=== PATIENT | female | born 1975 | race Asian ===

== ENCOUNTER 2022-01-21 01:15 | Emergency (ER) | payer BC ==
[~2022-01-21] VITALS: Ht 162.6 cm; Wt 74.8 kg
[2022-01-21 01:20] VITALS: BP_SYST 103
--- NOTE | 2022-01-21 01:21 | NUR ---
Patient to ER bed 07 to gown for evaluation. Side rails up. Report given to KESHAV Zamarripa
--- NOTE | 2022-01-21 01:27 | NUR ---
ASSUMED CARE OF PT AT THIS TIME. PT A&OX4, RR EVEN AND UNLABORED. DENIES ANY PAIN. HIVES NOTED AFTER DRINKING WINE THIS EVENING. SEE ASSESSMENT. SIGNIFICANT OTHER AT BEDSIDE.
[2022-01-21] MEDS ORDERED: HYDR-4175 TP (01:38)
[2022-01-21] MEDS ORDERED: PRED20TA PO (01:38)
[2022-01-21] MEDS ORDERED: DIPH25CA83 PO (01:38)
[2022-01-21] MEDS ORDERED: EPIN0.3P3 IM (01:38)
[2022-01-21] MEDS ORDERED: FAMOTIDINE 20 MG TABLET PO ONE (01:45)
[2022-01-21] MEDS ORDERED: predniSONE 20 MG TABLET PO ONE (01:45)
[2022-01-21] MEDS ORDERED: DIPHENHYDRAMINE HCL 25 MG CAPSULE PO ONE (01:45)
[2022-01-21 02:02] VITALS: BP_SYST 108
--- NOTE | 2022-01-21 02:02 | NUR ---
Patient given written and verbal discharge instructions and verbalizes understanding. ER MD discussed with patient the results and treatment provided. Patient in stable condition. ID arm band removed. IV catheter removed intact and dressing applied, no active bleeding. Rx of given. Patient educated on pain management and to follow up with PMD. Pain Scale . Opportunity for questions provided and answered. Medication side effect fact sheet provided.
== END 2022-01-21 02:02 | disposition home or self-care (01) ==
LOC: SED 01:15
DX: L50.0 Allergic urticaria (principal); Z79.899 Other long term (current) drug therapy
CPT/HCPCS: 99284; J7512; Q0163